=== PATIENT | male | born 1955 | race Caucasian/White ===

== ENCOUNTER 2018-11-16 17:05 | Emergency (ER) | payer OTHER ==
[~2018-11-16] VITALS: Ht 172.7 cm; Wt 68.0 kg
[2018-11-16] MEDS ORDERED: PROPRANOLOL (17:18)
[2018-11-16] MEDS ORDERED: BP MED (17:18)
--- NOTE | 2018-11-16 17:56 | NUR ---
Patient discharged to home in stable conditon. Written and verbal after care instructions given. Patient verbalizes understanding of instructions. Stressed follow up with pmd.
== END 2018-11-16 17:57 | disposition home or self-care (01) ==
LOC: ER 17:05
DX: R42 Dizziness and giddiness (principal); Z79.899 Other long term (current) drug therapy
CPT/HCPCS: 93005; A4663